=== PATIENT | male | born 1970 | race Caucasian/White ===

== ENCOUNTER 2025-01-27 14:31 | Outpatient (CLI) | payer OTHER, SELFPAY ==
--- NOTE | 2025-01-27 14:34 | XR_ITS ---
FINAL REPORT CLINICAL HISTORY: R knee pain COMPARISON: None FINDINGS: AP, lateral and oblique views of the right knee were obtained. There is no prior exam for comparison. There is evidence of a prior ACL reconstruction. There is no acute osseous abnormality of the right knee. Tricompartment degenerative change is present. The soft tissues are normal. There is a small joint effusion. IMPRESSION: No acute osseous abnormality of the right knee. Tricompartment degenerative changes present with a small joint effusion. Reviewed, Interpreted and Dictated by Corazon Atkinson MD Transcribed by Nataliia Messina Authenticated and [facility]
== END 2025-01-27 23:59 | disposition home or self-care (01) ==
LOC: RAD 14:32
PROVIDERS: Visit Provider Student in an Organized Health Care Education/Training Program
DX: M17.11 Unilateral primary osteoarthritis, right knee (principal); M25.461 Effusion, right knee
CPT/HCPCS: 73562